=== PATIENT | male | born 1985 | race Caucasian/White ===

== ENCOUNTER 2017-05-07 10:35 | Emergency (ER) | payer MEDICAID, OTHER ==
[~2017-05-07] VITALS: Ht 180.3 cm; Wt 79.4 kg
[~2017-05-07 10:35] MED LIST: CETI-102 PO; IBUP-1953 PO
[2017-05-07] MEDS ORDERED: ACETAMINOPHEN ES 500 MG TABLET PO ONE (11:00)
[2017-05-07] MEDS ORDERED: ACETAMINOPHEN ES 500 MG TABLET ONE (11:03)
--- NOTE | 2017-05-07 11:12 | NUR ---
Patient discharged to home in stable conditon. Written and verbal after care instructions given. Patient verbalizes understanding of instructions.pt accompanied by so. pt eubreathing
[2017-05-07 11:13] VITALS: BP 117/59
== END 2017-05-07 11:20 | disposition home or self-care (01) ==
LOC: ER 10:35
DX: J18.9 Pneumonia, unspecified organism (principal); J45.909 Unspecified asthma, uncomplicated
CPT/HCPCS: 71010; A4663